=== PATIENT | female | born 1980 | race Caucasian/White ===

== ENCOUNTER 2019-04-15 18:31 | Emergency (ER) | payer MEDICAID, OTHER, SELFPAY ==
[~2019-04-15] VITALS: Ht 167.6 cm; Wt 89.0 kg
[2019-04-15 18:38] VITALS: BP 144/88
== END 2019-04-15 20:15 | disposition home or self-care (01) ==
LOC: ED 19:45
DX: F41.9 Anxiety disorder, unspecified (principal); F10.10 Alcohol abuse, uncomplicated; K21.9 Gastro-esophageal reflux disease without esophagitis
CPT/HCPCS: 93005; 99283; 99284

== ENCOUNTER 2019-11-11 18:27 | Emergency (ER) | payer MEDICAID, OTHER ==
[~2019-11-11] VITALS: Ht 162.6 cm; Wt 92.0 kg
[2019-11-11 18:43] VITALS: BP 133/75
[2019-11-11] MEDS ORDERED: DIPH,PERTUSS(ACELL),TET VAC/PF 0.5 ML IM-VACC ONE (19:22)
[2019-11-11] MEDS ORDERED: SILVER SULF. CRM 1% , 25GM ONE (19:22)
[2019-11-11] MEDS: DIPH,PERTUSS(ACELL),TET VAC/PF 0.5 ML IM-VACC ONE ×2 (19:25→19:29)
[2019-11-11] MEDS ORDERED: SILVER SULF. CRM 1% , 25GM TP ONE (19:30)
== END 2019-11-11 19:31 | disposition home or self-care (01) ==
LOC: ED 19:15
DX: T22.212A Burn of second degree of left forearm, initial encounter (principal); T31.0 Burns involving less than 10% of body surface; F17.200 Nicotine dependence, unspecified, uncomplicated; W86.8XXA Exposure to other electric current, initial encounter; Y93.89 Activity, other specified; Y92.009 Unspecified place in unspecified non-institutional (private) residence as the place of occurrence of the external cause; Y99.8 Other external cause status
CPT/HCPCS: 10060; 16020; 99284

== ENCOUNTER 2020-08-02 21:13 | Emergency (ER) | payer SELFPAY ==
[2020-08-02 21:22] VITALS: BP 147/99
[2020-08-02] MEDS ORDERED: PENICILLIN VK 500MG TABLET ONE (22:00)
[2020-08-02] MEDS ORDERED: PENICILLIN VK 500MG TABLET PO ONE (22:00)
[2020-08-02] MEDS ORDERED: IBUPROFEN 800 MG TABLET PO ONE (22:00)
[2020-08-02] MEDS ORDERED: IBUPROFEN 600 MG TABLET ONE (22:00)
--- NOTE | 2020-08-02 22:03 | NUR ---
PT MEDICATED FOR PAIN AND ANTIBIOTICS IN TRIAGE. DENTAL LIST PROVIDED TO PT PRIOR TO D/C
== END 2020-08-02 22:20 | disposition home or self-care (01) ==
LOC: ED 22:03
DX: K08.89 Other specified disorders of teeth and supporting structures (principal); K21.9 Gastro-esophageal reflux disease without esophagitis
CPT/HCPCS: 99283